=== PATIENT | female | born 1955 | race Hispanic/Latino ===

== ENCOUNTER 2017-01-02 09:07 | Emergency (ER) | payer MEDICARE ==
[2017-01-02 10:16] LABS: Basophils % (Auto) 0.5 % (0.0-1.8); Eosinophils % (Auto) 1.6 % (0.0-4.3); Hematocrit 38.6 % (30.3-42.9); Hemoglobin 12.9 gm/dl (10.1-14.3); Mean Corpuscular HGB Conc 33 % (30-34); Mean Corpuscular Hemoglobin 29 pg (28-32); Mean Corpuscular Volume 88 fl (79-97); Platelet Count 141 K/mm3 (140-440); Red Blood Count 4.41 M/mm3 (3.65-5.03); Red Cell Distribution Width 14.9 % (13.2-15.2); White Blood Count 9.9 K/mm3 (4.5-11.0)
[2017-01-02 10:31] LABS: Anion Gap 18 mmol/L; Blood Urea Nitrogen 10 mg/dL (7-17); Carbon Dioxide 26 mmol/L (22-30); Chloride 97.5 mmol/L (98-107); Glucose 118 mg/dL (65-100); Potassium 4.2 mmol/L (3.6-5.0); Sodium 137 mmol/L (137-145)
[2017-01-02 10:33] LABS: Alanine Aminotransferase 10 units/L (7-56); Albumin 4.1 g/dL (3.9-5); Albumin/Globulin Ratio 1.2 %; Alkaline Phosphatase 71 units/L (35-129); Bilirubin,Total 0.6 mg/dL (0.1-1.2); Lipase 15 units/L (13-60); Total Protein 7.5 g/dL (6.3-8.2)
[2017-01-02 10:35] LABS: Bilirubin,Direct < 0.2 mg/dL (0-0.2)
[2017-01-02] MEDS ORDERED: NACL 0.9% 1000 ML 1,000 ML IV ONE (10:41)
[2017-01-02] MEDS ORDERED: TORADOL IV ONE (10:41)
--- NOTE | 2017-01-02 10:42 | Emergency Department Report ---
ED General Adult HPI - General Chief complaint: Abdominal Pain Stated complaint: POSS KIDNEY STONES Time Seen by Provider: 01/02/17 10:15 Source: patient, EMS (ems notes not available at time of chart dictation), RN notes reviewed Mode of arrival: Stretcher Limitations: No Limitations - History of Present Illness Initial comments: This is a 61-year-old female. I have evaluated her in the past. Past medical history includes hypertension, obesity, anemia, bipolar, left lower extremity DVT, left hip arthritis/infected joint. The patient presents to the ER with abdominal pain in the inability to urinate. The abdominal pain is diffuse and lower. It is sharp. Positive low-grade temperature to 99.5 here in the emergency room. Positive nausea, no vomiting. There is no chest pain or shortness of breath. There is no hematemesis of bright red blood per rectum. The patient reports that since her orthopedic intervention, she typically gets around with a walker. The patient's pain is constant. It worsens with palpation, and decreases with rest. She is also noted to be on [place]. Nurse put a Lewis catheter and the patient, got a few hundred mL of clear yellow urine, patient remained in a state of consistent pain, indicated that her pain was somewhat improved. Primary care doctor at the [facility] is Dr. Jone Luque. -: Gradual Quality: aching Consistency: constant Improves with: medication, rest Worsens with: medication Associated Symptoms: nausea/vomiting, other (urinary retention) - Related Data Home Medications Medication Instructions Recorded Confirmed Last Taken ALPRAZolam [Alprazolam] 1 mg PO DAILY 08/26/16 08/26/16 08/25/16 Previous Rx's Medication Instructions Recorded Last Taken Type Acetaminophen [Acetaminophen TAB] 650 mg PO Q4H PRN #30 tablet 07/22/16 Unknown Rx FLUoxetine [PROzac] 40 mg PO QDAY #60 capsule 07/22/16 08/25/16 Rx OLANzapine [Zyprexa] 20 mg PO DAILY #60 tablet 07/22/16 08/25/16 Rx clonazePAM [KlonoPIN] 1 mg PO BID #120 tablet 07/22/16 08/25/16 Rx HYDROcodone/APAP 7.5-325 [[place] 1 each PO Q8HR PRN #12 tablet 08/28/16 Unknown Rx 7.5/325] Nitrofurantoin Bacon/M-Cryst 100 mg PO Q12HR #14 capsule 01/02/17 Unknown Rx [Macrobid CAP] Allergies Allergy/AdvReac Type Severity Reaction Status Date / Time No Known Allergies Allergy Unverified 07/09/16 13:40 ED Review of Systems ROS: Stated complaint: POSS KIDNEY STONES Other details as noted in HPI Constitutional: denies: fever Eyes: denies: vision change ENT: denies: epistaxis Respiratory: denies: orthopnea Cardiovascular: denies: chest pain Gastrointestinal: abdominal pain Genitourinary: as per HPI, other (urinary obstruction) Musculoskeletal: as per HPI Skin: denies: lesions Neurological: denies: weakness Psychiatric: anxiety ED Past Medical Hx - Past Medical History Hx Hypertension: Yes Hx Congestive Heart Failure: No Hx Diabetes: No Hx Deep Vein Thrombosis: No Hx Psychiatric Treatment: Yes (bipolar) Hx Asthma: No Hx COPD: No - Surgical History Hx Pacemaker: No Hx Internal Defibrillator: No Additional Surgical History: bilateral hip replacement. prolapsed uterus, Left hip ball joint removed Jul-2016 - Social History Smoking Status: Former Smoker Substance Use Type: None - Medications Home Medications: Home Medications Medication Instructions Recorded Confirmed Last Taken Type Acetaminophen [Acetaminophen TAB] 650 mg PO Q4H PRN #30 tablet 07/22/16 Unknown Rx FLUoxetine [PROzac] 40 mg PO QDAY #60 capsule 07/22/16 08/26/16 08/25/16 Rx OLANzapine [Zyprexa] 20 mg PO DAILY #60 tablet 07/22/16 08/26/16 08/25/16 Rx clonazePAM [KlonoPIN] 1 mg PO BID #120 tablet 07/22/16 08/26/16 08/25/16 Rx ALPRAZolam [Alprazolam] 1 mg PO DAILY 08/26/16 08/26/16 08/25/16 History HYDROcodone/APAP 7.5-325 [[place] 1 each PO Q8HR PRN #12 tablet 08/28/16 Unknown Rx 7.5/325] Nitrofurantoin Bacon/M-Cryst 100 mg PO Q12HR #14 capsule 01/02/17 Unknown Rx [Macrobid CAP] ED Physical Exam - General Limitations: No Limitations General appearance: alert, in no apparent distress, obese - Head Head exam: Present: atraumatic, normocephalic - Eye Eye exam: Present: normal appearance, EOMI. Absent: nystagmus - ENT ENT exam: Present: normal exam, normal orophraynx, mucous membranes moist, normal external ear exam - Neck Neck exam: Present: normal inspection, full ROM. Absent: tenderness, meningismus - Respiratory Respiratory exam: Present: normal lung sounds bilaterally. Absent: respiratory distress, wheezes, rales, rhonchi, stridor, decreased breath sounds - Cardiovascular Cardiovascular Exam: Present: regular rate, normal rhythm, normal heart sounds. Absent: bradycardia, tachycardia, irregular rhythm, systolic murmur, diastolic murmur, rubs, gallop - GI/Abdominal GI/Abdominal exam: Present: soft, tenderness, normal bowel sounds, other (there is mild diffuse abdominal tenderness, there is no rebound, guarding or peritoneal signs.). Absent: distended, guarding, rebound, rigid, pulsatile mass - Rectal Rectal exam: Present: normal inspection, other (gluteal sites are nontender, there is no sacral breakdown) - Extremities Exam Extremities exam: Present: normal inspection, full ROM, normal capillary refill , other (the left hip site appears to be healing well, there is no redness, pus , streaking. Lateral thigh scar is noted consistent with prior surgical interventions.). Absent: pedal edema, joint swelling, calf tenderness - Back Exam Back exam: Present: normal inspection, full ROM. Absent: tenderness, CVA tenderness (R), CVA tenderness (L), muscle spasm, paraspinal tenderness, vertebral tenderness - Neurological Exam Neurological exam: Present: alert, oriented X3, other (Extraocular movements intact. Tongue midline. No facial droop. Facial sensation intact to light touch in the V1, V2, V3 distribution bilaterally. 5 and 5 strength in 4 extremities.. Sensation is intact to light touch in 4 extremities.). Absent: motor sensory deficit - Psychiatric Psychiatric exam: Present: normal affect, normal mood - Skin Skin exam: Present: warm, dry, intact, normal color. Absent: rash ED Course Vital Signs 01/02/17 01/02/17 01/02/17 09:36 11:07 15:21 Temperature 99.5 F Pulse Rate 96 H 88 Respiratory 16 18 15 Rate Blood Pressure 113/75 Blood Pressure 107/70 [Left] O2 Sat by Pulse 96 99 97 Oximetry - Reevaluation(s) Reevaluation #1: 01/02/17 12:13 differential diagnosis: Narcotic bowel syndrome, constipation, obstruction, intra-abdominal abscess, urinary tract infection, obstructive uropathy Assessment and plan: 61-year-old female with abdominal pain, inability to urinate, most likely has obstructive uropathy. Lewis catheter is placed, urinalysis consistent with UTI. Low-grade temperature but typically not a fever , laboratory studies are otherwise unremarkable. Patient may have a component of chronic abdominal pain, she is noted to be on chronic narcotic therapy. Given her past history of septic joints/arthritis, we will obtain a CT scan of the abdomen and pelvis to exclude additional disease. Her pain will be treated symptomatically. Reevaluation #2: 01/02/17 14:59 CT scan of the abdomen and pelvis demonstrates no acute disease, fatty stranding noted in the pelvis suggestive of cystitis. This corroborates the patient's clinical history. Normal appendix is noted. IVC filter is noted, no other acute disease. Lewis catheter remain in place. Patient was loaded empirically with ceftriaxone. Patient will be discharged with Macrobid. She should follow-up with the urology specialist within the next 7 days. Cultures are sent. She is suitable for discharge back to her [facility] at this time. Lewis catheter to remain in place. ED Medical Decision Making - Lab Data Result diagrams: 01/02/17 10:03 01/02/17 10:03 Vital Signs 01/02/17 01/02/17 09:36 11:07 Temperature 99.5 F Pulse Rate 96 H Respiratory 16 18 Rate Blood Pressure 113/75 O2 Sat by Pulse 96 99 Oximetry Lab Results 01/02/17 01/02/17 01/02/17 Range/Units 09:42 10:03 10:03 WBC 9.9 (4.5-11.0) K/mm3 RBC 4.41 (3.65-5.03) M/mm3 Hgb 12.9 (10.1-14.3) gm/dl Hct 38.6 (30.3-42.9) % MCV 88 (79-97) fl MCH 29 (28-32) pg MCHC 33 (30-34) % RDW 14.9 (13.2-15.2) % Plt Count 141 (140-440) K/mm3 Lymph % (Auto) 12.3 L (13.4-35.0) % Bacon % (Auto) 6.0 (0.0-7.3) % Eos % (Auto) 1.6 (0.0-4.3) % Baso % (Auto) 0.5 (0.0-1.8) % Lymph # 1.2 (1.2-5.4) K/mm3 Bacon # 0.6 (0.0-0.8) K/mm3 Eos # 0.2 (0.0-0.4) K/mm3 Baso # 0.1 (0.0-0.1) K/mm3 Seg Neutrophils % 79.6 H (40.0-70.0) % Seg Neutrophils # 7.9 H (1.8-7.7) K/mm3 Sodium 137 (137-145) mmol/L Potassium 4.2 (3.6-5.0) mmol/L Chloride 97.5 L (98-107) mmol/L Carbon Dioxide 26 (22-30) mmol/L Anion Gap 18 mmol/L BUN 10 (7-17) mg/dL Creatinine 0.4 L (0.7-1.2) mg/dL Estimated GFR > 60 ml/min BUN/Creatinine Ratio 25.00 % Glucose 118 H (65-100) mg/dL Calcium 10.0 (8.4-10.2) mg/dL Total Bilirubin (0.1-1.2) mg/dL Direct Bilirubin (0-0.2) mg/dL AST (5-40) units/L ALT (7-56) units/L Alkaline Phosphatase (35-129) units/L Total Creatine Kinase (30-135) units/L Total Protein (6.3-8.2) g/dL Albumin (3.9-5) g/dL Albumin/Globulin Ratio % Lipase (13-60) units/L Urine Color Isabel (Yellow) Urine Turbidity Turbid (Clear) Urine pH 8.0 H (5.0-7.0) Ur Specific [place] 1.013 (1.003-1.030) Urine Protein 100 mg/dl (Negative) mg/dL Urine Glucose (UA) Neg (Negative) mg/dL Urine Ketones Neg (Negative) mg/dL Urine Blood Mod (Negative) Urine Nitrite Pos (Negative) Urine Bilirubin Neg (Negative) Urine Urobilinogen < 2.0 (<2.0) mg/dL Ur Leukocyte Esterase Mod (Negative) Urine WBC (Auto) 50.0 H (0.0-6.0) /HPF Urine RBC (Auto) 8.0 (0.0-6.0) /HPF U Epithel Cells (Auto) 3.0 (0-13.0) /HPF Urine Bacteria (Auto) 4+ (Negative) /HPF 01/02/17 01/02/17 Range/Units 10:03 10:03 WBC (4.5-11.0) K/mm3 RBC (3.65-5.03) M/mm3 Hgb (10.1-14.3) gm/dl Hct (30.3-42.9) % MCV (79-97) fl MCH (28-32) pg MCHC (30-34) % RDW (13.2-15.2) % Plt Count (140-440) K/mm3 Lymph % (Auto) (13.4-35.0) % Bacon % (Auto) (0.0-7.3) % Eos % (Auto) (0.0-4.3) % Baso % (Auto) (0.0-1.8) % Lymph # (1.2-5.4) K/mm3 Bacon # (0.0-0.8) K/mm3 Eos # (0.0-0.4) K/mm3 Baso # (0.0-0.1) K/mm3 Seg Neutrophils % (40.0-70.0) % Seg Neutrophils # (1.8-7.7) K/mm3 Sodium (137-145) mmol/L Potassium (3.6-5.0) mmol/L Chloride (98-107) mmol/L Carbon Dioxide (22-30) mmol/L Anion Gap mmol/L BUN (7-17) mg/dL Creatinine (0.7-1.2) mg/dL Estimated GFR ml/min BUN/Creatinine Ratio % Glucose (65-100) mg/dL Calcium (8.4-10.2) mg/dL Total Bilirubin 0.6 (0.1-1.2) mg/dL Direct Bilirubin < 0.2 (0-0.2) mg/dL AST 13 (5-40) units/L ALT 10 (7-56) units/L Alkaline Phosphatase 71 (35-129) units/L Total Creatine Kinase 27 L (30-135) units/L Total Protein 7.5 (6.3-8.2) g/dL Albumin 4.1 (3.9-5) g/dL Albumin/Globulin Ratio 1.2 % Lipase 15 (13-60) units/L Urine Color (Yellow) Urine Turbidity (Clear) Urine pH (5.0-7.0) Ur Specific [place] (1.003-1.030) Urine Protein (Negative) mg/dL Urine Glucose (UA) (Negative) mg/dL Urine Ketones (Negative) mg/dL Urine Blood (Negative) Urine Nitrite (Negative) Urine Bilirubin (Negative) Urine Urobilinogen (<2.0) mg/dL Ur Leukocyte Esterase (Negative) Urine WBC (Auto) (0.0-6.0) /HPF Urine RBC (Auto) (0.0-6.0) /HPF U Epithel Cells (Auto) (0-13.0) /HPF Urine Bacteria (Auto) (Negative) /HPF - Radiology Data Radiology results: pending, report reviewed, image reviewed CT scan of the abdomen and pelvis with IV contrast demonstrates cystitis. Chronic findings otherwise noted. No acute disease. Critical care attestation.: If time is entered above; I have spent that time in minutes in the direct care of this critically ill patient, excluding procedure time. ED Disposition Clinical Impression: Cystitis Disposition: DISCHARGED TO HOME OR SELFCARE Is pt being admited?: No Does the pt Need Aspirin: No Condition: Stable Instructions: Urinary Tract Infection in Women (ED) Additional Instructions: Return studies and CT scan suggested bladder infection. Lewis catheter should remain in place. Cultures were sent today, results will be available in the next 3-5 days. Her primary care doctor contact the medical records department to obtain culture results. Lewis catheter should remain in place until consultation with urology specialist. Dr. Lima is a local urology specialist. Return to the ER right away with new pain, worsened pain, migration of pain, fevers or chills, nausea or vomiting, inability to tolerate liquid feeds, new, worsening or different symptoms. Prescriptions: Nitrofurantoin [place]/M-Cryst [Macrobid CAP] 100 mg PO Q12HR #14 capsule Referrals: PRIMARY CARE, [Primary Care Provider] - 3-5 Days DAI LIMA MD [Staff Physician] - 3-5 Days
[2017-01-02 10:43] LABS: Bilirubin,Urine NEG (Negative); Blood,Urine MOD (Negative); Ketones,Urine NEG (Negative); Leukocyte Esterase,Urine MOD (Negative); Nitrite,Urine POS (Negative); Urobilinogen,Urine < 2.0 mg/dL (<2.0)
[2017-01-02 10:56] LABS: Bacteria,Urine 4+ /HPF (Negative)
[2017-01-02] MEDS ORDERED: ROCEPHIN/NS 1 GM/50 ML 1 GM/50 ML BAG IV ONE (12:07)
--- NOTE | 2017-01-02 14:39 | Cat Scan Report ---
CT ABDOMEN AND PELVIS WITH CONTRAST INDICATION: Abdominal pain. COMPARISON: 07/09/[address] FINDINGS: Abdomen and pelvis CT performed following intravenous administration of 100 cc of Omnipaque 300. LUNG BASES: Slight right basilar atelectasis or scarring. Nonspecific distal esophageal wall thickening, not excluded for gastroesophageal reflux and/or hiatal hernia, amongst others. ABDOMEN: Diffuse fatty hepatic infiltration. Right hepatic lobe approximately 20 cm in midclavicular length. At least 2 peripherally calcified gallstones measuring up to 1.7 cm in size. Otherwise unremarkable liver, spleen, pancreas, adrenals, nonaneurysmal abdominal aorta and kidneys. Bilateral extrarenal pelves. IVC filter tip noted well below the level of the renal veins. No ascites or significant adenopathy. Nonopacified GI tract evaluation limited, though grossly nonobstructive. Normal appendix. Mild colonic stool. Few distal descending colon diverticuli. Fat-containing umbilical hernia with a transverse neck of 1.3 cm. PELVIS: Presacral and pelvic fat stranding now identified. Extensive streak artifact from replaced bilateral hips again limits assessment. However, diffuse urinary bladder wall thickening now suspected, though decompressed with an indwelling Lewis catheter. Uterus again surgically absent. Few proximal sigmoid diverticuli. Rectosigmoid stool. No significant inguinal lymphadenopathy. Approximately 4 mm stable anterolisthesis of L4 over L5 and L5 over S1. Advanced mid to lower lumbar facet arthropathy also again noted. Demineralized bones with multilevel lower thoracic spine degenerative changes, including moderate spurring and disc narrowing with vacuum phenomenon at few levels also seen. CONCLUSION: 1. Fat stranding in the pelvis with suspected urinary bladder wall thickening/cystitis, new since June 2016 in this patient with interval Lewis catheter placement as well. Please correlate. 2. Various other incidental findings, including fatty enlarged liver, cholelithiasis, IVC filter, diverticulosis, hysterectomy, bilateral hip replacements and multilevel spinal degenerative changes, amongst others, as above. Thank you for the opportunity to participate in this patient's care.
[2017-01-02 15:21] VITALS: BP 107/70
== END 2017-01-02 16:59 | disposition home or self-care (01) ==
LOC: ED 09:07
DX: N30.90 Cystitis, unspecified without hematuria (principal); I10 Essential (primary) hypertension; F31.9 Bipolar disorder, unspecified; Z87.891 Personal history of nicotine dependence
CPT/HCPCS: 36415; 51702; 74177; 80048; 80074; 81001; 82550; 83690; 85025; 87076; 87086; 87186; 96361; 96365; 96375; 99284; J0696; J1885; J7030; Q9967

== ENCOUNTER 2019-02-22 06:44 | Day surgery (SDC) | payer MEDICARE ==
[2019-02-22] MEDS ORDERED: NACL 0.9% 1000 ML 1,000 ML IV SCH (08:00)
[2019-02-22] MEDS ORDERED: DIPRIVAN 10 MG/ML IV ONE (09:17)
--- NOTE | 2019-02-22 09:30 | Anesthesia Consultation ---
Anesthesia Consult and Med Hx Date of service: 02/22/19 - Airway Anesthetic Teeth Evaluation: Good ROM Head & Neck: Inadequate (had cervical fusion, very limited ROM) Mental/Hyoid Distance: Adequate Mallampati Class: Class III Intubation Access Assessment: Possibly Difficult - Pre-Operative Health Status ASA Pre-Surgery Classification: ASA3 Proposed Anesthetic Plan: MAC - Pulmonary Hx Asthma: No COPD: No Hx Pneumonia: Yes Hx Sleep Apnea: Yes (Uses CPAP) - Cardiovascular System Hx Hypertension: Yes Hx Pacemaker: No Hx Internal Defibrillator: No - Central Nervous System Hx Neuromuscular Disorder: Yes (peripheral neuropathy) Hx Back Pain: Yes Hx Psychiatric Problems: Yes (Bipolar) - Endocrine Hx End Stage Renal Disease: No Hx Non-Insulin Dependent Diabetes: Yes - Other Systems Hx Obesity: Yes (BMI 50.5)
--- NOTE | 2019-02-22 09:31 | Anesthesia Day of Surgery ---
Anesthesia Day of Surgery - Day of Surgery Patient Examined: Yes Patient H&P Reviewed: Yes Patient is NPO: Yes
[2019-02-22] MEDS ORDERED: WATER FOR IRRIG STERILE IR ONE (10:09)
[2019-02-22 10:13] VITALS: BP 114/82
--- NOTE | 2019-02-22 12:20 | Operative Report ---
PREOPERATIVE DIAGNOSIS: Morbid obesity. POSTOPERATIVE DIAGNOSES: Gastritis, small hiatal hernia. PROCEDURE: EGD. ANESTHESIA: MAC. COMPLICATIONS: None. SPECIMENS: None. BLEEDING: None. INDICATIONS: The patient is a 64-year-old female with a history of morbid obesity. She is here for preoperative EGD in preparation for her weight loss surgery. Informed consent was obtained. DESCRIPTION OF PROCEDURE: The patient was brought to the GI suite where she was placed in the left lateral decubitus position and underwent MAC anesthesia. A bite block was placed and time-out was called. A standard adult Olympus gastroscope was inserted into the oropharynx down the esophagus into the stomach and the first portion of the duodenum. On retroflexion view, she was noted to have a small type 1 sliding hiatal hernia less than 1 cm. She was noted to have a mild gastritis in the antrum of the stomach. With this, the air was suctioned out. The gastroscope was removed. The patient tolerated the procedure with no immediate complications and was transferred to the PACU in stable condition. JOB# [id number] CLYDE/KENN
== END 2019-02-22 06:45 | disposition home or self-care (01) ==
LOC: GIO 06:44
PROVIDERS: ATTEND Specialist
DX: K29.70 Gastritis, unspecified, without bleeding (principal); K44.9 Diaphragmatic hernia without obstruction or gangrene; E66.01 Morbid (severe) obesity due to excess calories; E11.9 Type 2 diabetes mellitus without complications; K30 Functional dyspepsia; I10 Essential (primary) hypertension; F31.9 Bipolar disorder, unspecified; G47.30 Sleep apnea, unspecified; Z79.899 Other long term (current) drug therapy; Z98.890 Other specified postprocedural states; Z86.718 Personal history of other venous thrombosis and embolism; Z96.643 Presence of artificial hip joint, bilateral
CPT/HCPCS: 43235; J2704; J7030